=== PATIENT | female | born 1945 | race Caucasian/White ===

== ENCOUNTER 2024-11-22 06:36 | Day surgery (SDC) | payer OTHER, SELFPAY | END 2024-11-22 09:06 | disposition home or self-care (01) | LOC: GI 06:36 | PROVIDERS: ATTENDING PHYSICIAN Internal Medicine Gastroenterology; FAMILY PHYSICIAN Student in an Organized Health Care Education/Training Program | DX: K21.9 Gastro-esophageal reflux disease without esophagitis (principal); R93.3 Abnormal findings on diagnostic imaging of other parts of digestive tract; K31.89 Other diseases of stomach and duodenum; R10.13 Epigastric pain; K58.2 Mixed irritable bowel syndrome | CPT/HCPCS: 43239; 91035; 88305; 88342 ==